=== PATIENT | female | born 1965 | race Caucasian/White ===

== ENCOUNTER 2021-02-12 15:17 | Outpatient (REF) | payer OTHER, SELFPAY ==
[2021-02-13 11:38] LABS: COVID-19 RT-PCR UVMMC Result Negative (Negative)
== END 2021-02-12 15:18 | disposition home or self-care (01) ==
LOC: NCHCN 15:17
PROVIDERS: PCP Nurse Practitioner; Visit Provider Nurse Practitioner Family
DX: Z20.822 Contact with and (suspected) exposure to COVID-19 (principal)
CPT/HCPCS: U0003

== ENCOUNTER 2021-09-29 10:10 | Outpatient (REF) | payer SELFPAY ==
[2021-10-01 10:43] LABS: COVID-19 RT-PCR UVMMC Result Negative (Negative)
== END 2021-09-29 10:11 | disposition home or self-care (01) ==
LOC: NCHCN 10:10
PROVIDERS: PCP Nurse Practitioner; Visit Provider Nurse Practitioner Family
DX: Z20.822 Contact with and (suspected) exposure to COVID-19 (principal)
CPT/HCPCS: U0003

== ENCOUNTER 2023-01-20 15:45 | Outpatient (REF) | payer BC, SELFPAY ==
--- NOTE | 2023-01-20 12:00 | PAPFT_PTH ---
PATIENT: Mildred Coelho LOC: NCN #:[id number] AGE/SX: 57/F ROOM: RE01/20/[address]: Avani Oliver : 1965 BED: DIS: 01/20/2023 SPEC #: [id number] RECD: 01/23/23 17:48 STATUS: WILFREDO REMary #: [id number] ALFREDITO: 01/20/23 12:[address]: Avani Oliver DEPT: [facility], 1928–1983 Cytology RECD BY: Theresa Blood ENTERED: 01/23/23 17:48 SP TYPE: PAPFT OTHR DR: Sharon Coto Tissues: 1 - CX/ENDOCX FOR PAP SMEARS Procedures: PAP THIN PREP/[facility] Screening HPV DNA PROBE Comments: [id number]
[2023-01-20 21:00] LABS: HCT 39.3 % (36.0-46.0); HGB 12.7 g/dL (11.2-15.7); MCH 29.5 pg (27.0-33.0); MCHC 32.3 % (32.0-36.0); MCV 91 fL (80-95); MPV 10.6 fL (8.0-11.0); Platelet Count 189 10^3/uL (130-400); RDW 13.2 % (11.7-14.6); RDW-SD 44.8 fL; WBC 5.77 10^3/uL (4.4-10.8)
[2023-01-20 21:29] LABS: ALT 22 U/L (14-59); AST 18 U/L (15-37); Albumin 4.1 g/dL (3.4-5.0); Alkaline Phosphatase 51 U/L (46-116); Anion Gap 6.3 mmol/L (3-11); BUN 21 mg/dL (7-18); Bilirubin, Total 0.3 mg/dL (0.2-1.0); CO2 30.7 mmol/L (21.0-32.0); CREATININE 0.8 mg/dL (0.55-1.02); Calcium 9.4 mg/dL (8.5-10.1); Calculated LDL 166 mg/dL (<100); Chloride 105 mmol/L (98-107); Cholesterol 264 mg/dL (<200); Estimated GFR 85.35 (mL/min/1.73m2); Glucose 85 mg/dL (74-106); HDL Cholesterol 87 mg/dL (40-60); Potassium 4.2 mmol/L (3.5-5.1); Sodium 142 mmol/L (136-145); Total Protein 7.4 g/dL (6.4-8.2); Triglyceride 59 mg/dL (<150)
== END 2023-01-20 15:46 | disposition home or self-care (01) ==
LOC: NCHCN 15:45
PROVIDERS: PCP Nurse Practitioner; Visit Provider Nurse Practitioner Family
DX: Z00.00 Encounter for general adult medical examination without abnormal findings (principal); Z13.220 Encounter for screening for lipoid disorders; Z13.0 Encounter for screening for diseases of the blood and blood-forming organs and certain disorders involving the immune mechanism; Z12.4 Encounter for screening for malignant neoplasm of cervix; Z01.419 Encounter for gynecological examination (general) (routine) without abnormal findings; Z13.228 Encounter for screening for other metabolic disorders; Z11.51 Encounter for screening for human papillomavirus (HPV)
CPT/HCPCS: 80053; 80061; 85027; 88142; 87624

== ENCOUNTER 2023-08-21 16:03 | Outpatient (REF) | payer BC, SELFPAY | END 2023-08-21 16:04 | disposition home or self-care (01) | LOC: LBN 16:03 | PROVIDERS: PCP Nurse Practitioner; Visit Provider Nurse Practitioner Family | DX: N30.01 Acute cystitis with hematuria (principal) | CPT/HCPCS: 87077; 87086; 87186 ==

== ENCOUNTER 2024-01-24 14:40 | Outpatient (REF) | payer BC, SELFPAY ==
[2024-01-24 21:08] LABS: HCT 39.8 % (36.0-46.0); HGB 12.8 g/dL (11.2-15.7); MCH 29.6 pg (27.0-33.0); MCHC 32.2 % (32.0-36.0); MCV 92 fL (80-95); MPV 11.1 fL (8.0-11.0); Platelet Count 185 10^3/uL (130-400); RBC 4.32 10^6/uL (3.93-5.22); RDW 13.7 % (11.7-14.6); RDW-SD 46.9 fL; WBC 6.48 10^3/uL (4.4-10.8)
[2024-01-24 21:23] LABS: ALT 22 U/L (14-59); AST 18 U/L (15-37); Albumin 3.9 g/dL (3.4-5.0); Alkaline Phosphatase 56 U/L (46-116); BUN 25 mg/dL (7-18); Bilirubin, Total 0.3 mg/dL (0.2-1.0); CREATININE 0.9 mg/dL (0.55-1.02); Calcium 9.8 mg/dL (8.5-10.1); Chloride 107 mmol/L (98-107); Estimated GFR 73.64 (mL/min/1.73m2); Glucose 93 mg/dL (74-106); Potassium 4.8 mmol/L (3.5-5.1); Sodium 146 mmol/L (136-145); Total Protein 7.1 g/dL (6.4-8.2)
== END 2024-01-24 14:41 | disposition home or self-care (01) ==
LOC: NCHCN 14:40
PROVIDERS: Visit Provider Nurse Practitioner Family
DX: Z00.00 Encounter for general adult medical examination without abnormal findings (principal)
CPT/HCPCS: 80053; 85027

== ENCOUNTER 2024-08-01 09:57 | Outpatient (CLI) | payer BC, SELFPAY ==
--- NOTE | 2024-08-01 | DI.RAD_ITS ---
Exam(s) XR KNEE RT 3V AP,LAT,JEROME EXAM: XR KNEE RT 3V AP,LAT,JEROME CLINICAL HISTORY: Pain in right knee, M25.561. TECHNIQUE: 2D digital imaging was performed. COMPARISON: CR XR KNEE LT 3V AP,LAT,JEROME from 08/01/2024 FINDINGS: 3 views No evidence of fracture nor obvious joint effusion. There is mild narrowing of the medial compartmen t. No osteophytes. Lateral compartment exhibits normal height. Tibial plateau unremarkable. Bone density normal. No osseous lesions. IMPRESSION: No acute osseous findings in the right knee. Mild degenerative narrowing of the medial compartment. No effusion. DATA REPOSITORY: RADIATION DOSE DELIVERED:
--- NOTE | 2024-08-01 | DI.RAD_ITS ---
Exam(s) XR KNEE LT 3V AP,LAT,JEROME EXAM: XR KNEE LT 3V AP,LAT,JEROME CLINICAL HISTORY: Pain in lt knee, M25.562. TECHNIQUE: 2D digital imaging was performed. COMPARISON: CR XR KNEE RT 3V AP,LAT,JEROME from 08/01/2024 FINDINGS: 3 views No evidence of fracture or obvious joint effusion. There is a benign-appearing small exostosis off the medial aspect of the outer medial tibial plateau. This does not have the typical appearance of a degenerative osteophyte. There is mild narrowing of the medial compartment. There is an eccentric small osteophyte off the outer aspect of the medial f emoral condyle. Lateral compartment appears unremarkable. Bone density is normal IMPRESSION: Mild degenerative changes in the medial compartment. Other findings as above. No joint effusion see n. DATA REPOSITORY: RADIATION DOSE DELIVERED:
== END 2024-08-01 10:17 ==
LOC: DI 09:58
PROVIDERS: Visit Provider Nurse Practitioner Family
DX: M25.562 Pain in left knee (principal); M25.561 Pain in right knee
CPT/HCPCS: 73562

== ENCOUNTER 2025-02-18 15:45 | Outpatient (REF) | payer BC, SELFPAY ==
[2025-02-18 22:09] LABS: HCT 39.2 % (36.0-46.0); HGB 12.9 g/dL (11.2-15.7); MCH 30.1 pg (27.0-33.0); MCHC 32.9 % (32.0-36.0); MCV 91 fL (80-95); Platelet Count 190 10^3/uL (130-400); RBC 4.29 10^6/uL (3.93-5.22); RDW 13.2 % (11.7-14.6); RDW-SD 44.7 fL; WBC 7.76 10^3/uL (4.4-10.8)
[2025-02-18 22:29] LABS: ALT 23 U/L (14-59); AST 21 U/L (15-37); Albumin 3.9 g/dL (3.4-5.0); Alkaline Phosphatase 57 U/L (46-116); Anion Gap 9.4 mmol/L (3-11); BUN 20 mg/dL (7-18); Bilirubin, Total 0.3 mg/dL (0.2-1.0); CO2 27.6 mmol/L (21.0-32.0); CREATININE 0.8 mg/dL (0.55-1.02); Calcium 9.5 mg/dL (8.5-10.1); Calculated LDL 122 mg/dL (<100); Chloride 106 mmol/L (98-107); Cholesterol 233 mg/dL (<200); Glucose 80 mg/dL (74-106); HDL Cholesterol 93 mg/dL (>or=50); Potassium 4.3 mmol/L (3.5-5.1); Sodium 143 mmol/L (136-145); Total Protein 7.2 g/dL (6.4-8.2); Triglyceride 94 mg/dL (<150)
== END 2025-02-18 15:46 | disposition home or self-care (01) ==
LOC: NCHCN 15:45
PROVIDERS: PCP Nurse Practitioner Family; Visit Provider Nurse Practitioner Family
DX: Z00.00 Encounter for general adult medical examination without abnormal findings (principal)
CPT/HCPCS: 80053; 80061; 85027